=== PATIENT | male | born 2000 | race African-American/Black ===

== ENCOUNTER 2022-02-17 19:27 | Emergency (ER) | payer OTHER, BC ==
[~2022-02-17] VITALS: Ht 180.3 cm; Wt 63.6 kg
[2022-02-17] MEDS ORDERED: normal saline 1000ML IV soln IVB ONE ×2 (19:45→22:45)
--- NOTE | 2022-02-17 20:53 | NUR ---
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
--- NOTE | 2022-02-17 21:31 | NUR ---
PT IS NOW MORE AWAKE AND ALERT. ATTEMPTING TO REACH A RIDE VIA ONLINE [employer]IAL [employer]. PT DOES NOT RECALL ANY PHONE NUMBERS OF PEOPLE THAT CAN COME PICK HIM UP.
--- NOTE | 2022-02-17 22:40 | NUR ---
pt moved to hallway 13 from fast track.
--- NOTE | 2022-02-17 23:45 | NUR ---
pt walking to registration to use the phone. pt with steady gait. pt a/o x4. pt gcs 15.
--- NOTE | 2022-02-18 01:39 | NUR ---
pt mother(yaritza) phone# ([phone]
[2022-02-18 09:51] VITALS: BP 127/75
== END 2022-02-18 10:01 | disposition home or self-care (01) ==
LOC: ER 19:28
DX: F10.929 Alcohol use, unspecified with intoxication, unspecified (principal); Y90.9 Presence of alcohol in blood, level not specified
CPT/HCPCS: 36415; 80320; 96360; 96361; 99285; J7030